=== PATIENT | male | born 1955 | race Hispanic/Latino ===

== ENCOUNTER 2017-11-07 12:37 | Emergency (ER) | payer MEDICAID ==
[2017-11-07] MEDS ORDERED: IBUPROFEN 600 MG TABLET ONE (13:27)
== END 2017-11-07 15:01 | disposition home or self-care (01) ==
LOC: EDH 12:37
DX: S80.11XA Contusion of right lower leg, initial encounter (principal); R60.0 Localized edema; I10 Essential (primary) hypertension; E78.5 Hyperlipidemia, unspecified; F32.9 Major depressive disorder, single episode, unspecified; W01.0XXA Fall on same level from slipping, tripping and stumbling without subsequent striking against object, initial encounter; Y93.01 Activity, walking, marching and hiking; Y92.89 Other specified places as the place of occurrence of the external cause; Y99.8 Other external cause status
CPT/HCPCS: 93971

== ENCOUNTER 2021-09-05 15:04 | Emergency (ER) | payer MEDICARE ==
[~2021-09-05] VITALS: Ht 172.7 cm; Wt 100.7 kg
[2021-09-05] MEDS ORDERED: 0.9%NACL 1000ML 1,000 ML IV ONE (15:20)
[2021-09-05] MEDS ORDERED: 0.9%NACL 1000ML 1,000 ML IV SCH (15:30)
[2021-09-05] MEDS ORDERED: ONDANSETRON 4MG INJ IVP ONE (15:30)
[2021-09-05] MEDS ORDERED: KETOROLAC 30MG VIAL (30MG/ML) IV ONE (15:30)
[2021-09-05 15:34] VITALS: BP 106/80
[2021-09-05 15:36] LABS: BASOPHILS % (AUTO) 0.6 % (0.0-5.0); EOSINOPHILS % (AUTO) 2.1 % (0.0-8.0); HEMATOCRIT 37.8 % (42-54); LYMPHOCYTES % (AUTO) 17.2 % (21.0-51.0); MEAN CORPUSCULAR HEMOGLOBIN 23.3 pg (27.0-33.0); MEAN CORPUSCULAR HGB CONC 31.2 g/dL (32.0-36.0); MEAN CORPUSCULAR VOLUME 74.7 fL (79-99); MONOCYTES % (AUTO) 10.1 % (3.0-13.0); NEUTROPHILS % (AUTO) 69.7 % (40.0-77.0); PLATELET COUNT (AUTO) 257 K/uL (130-400); RED BLOOD CELL COUNT(AUTO) 5.06 MIL/uL (4.50-6.20); RED CELL DISTRIBUTION WIDTH 16.4 % (11.0-15.5); WHITE BLOOD COUNT (AUTO) 6.8 K/uL (4.8-10.8)
[2021-09-05 16:08] LABS: ALBUMIN 3.3 g/dL (3.5-5.0); BILIRUBIN,TOTAL 0.3 mg/dL (0.2-1.0); CREATININE 2.1 mg/dL (0.5-1.5); POTASSIUM 4.9 mmol/L (3.5-5.1); TOTAL PROTEIN, SERUM 7.6 g/dL (6.0-8.3)
[2021-09-05 16:20] LABS: APPEARANCE,URINE Clear (CLEAR); BILIRUBIN,URINE Negative (NEGATIVE); COLOR,URINE Yellow (YELLOW); GLUCOSE, URINE (UA) Negative (NEGATIVE); KETONES,URINE Negative (NEGATIVE); LEUKOCYTE ESTERASE ,URINE Small (NEGATIVE); NITRATE,URINE Negative (NEGATIVE); OCCULT BLOOD,URINE Negative (NEGATIVE); PH,URINE 5.5 (5.0-8.0); PROTEIN,URINE Trace mg/dL (NEGATIVE); UROBILINOGEN,URINE 0.2 mg/dL (0.2-1.0)
[2021-09-05] MEDS ORDERED: MAGNESIUM CITRATE 296 ML SOLUTION ONE (16:21)
[2021-09-05] MEDS ORDERED: LACTULOSE 20 GM/30 ML UDCUP ONE (16:21)
[2021-09-05] MEDS ORDERED: LACT10PA5 PO (16:23)
[2021-09-05] MEDS ORDERED: DICY20TA2 PO (16:23)
[2021-09-05] MEDS ORDERED: MAGNESIUM CITRATE 296 ML SOLUTION PO SCH (16:30)
[2021-09-05] MEDS ORDERED: LACTULOSE 20 GM/30 ML UDCUP PO SCH (16:30)
[2021-09-05 16:34] LABS: RBC,URINE 0-1 /HPF (0-1)
[2021-09-05 16:35] LABS: BACTERIA,URINE Rare /HPF (None Seen); SQUAMOUS EPITHELIAL CELL,UR Rare /HPF (0-2)
== END 2021-09-05 16:33 | disposition home or self-care (01) ==
LOC: EDH 15:04
DX: K59.00 Constipation, unspecified (principal); I95.1 Orthostatic hypotension; G89.18 Other acute postprocedural pain; R10.9 Unspecified abdominal pain; I10 Essential (primary) hypertension; E11.9 Type 2 diabetes mellitus without complications; E66.9 Obesity, unspecified; Z90.5 Acquired absence of kidney; Z68.33 Body mass index [BMI] 33.0-33.9, adult
CPT/HCPCS: 36415; 71045; 74176; 80053; 81001; 83605; 83690; 84484; 85025; 87040 ×2; 96361; 96374; 96375; 99285; J1885; J2405; J7030